=== PATIENT | female | born 1950 | race Caucasian/White ===

== ENCOUNTER 2016-06-20 16:43 | Emergency (ER) | payer MEDICARE ==
--- NOTE | 2016-06-20 17:05 | ERNOTE ---
Upper Extremity HPI - Narrative Date of Service: 06/20/16 - General Extremities Pain Location: hand: right - PT FELL LAST NIGHT ONTO OUTSTRETCHED HAND AND NOW HAS RIGHT HAND PAIN Time Seen by Provider: 06/20/16 16:54 Source: patient Exam Limitations: no limitations - Immun/Allergies/Home Medications Immunizations: IMMUNIZATION HX History of Influenza Vaccine Yes Hx Pneumococcal Vaccination Yes Allergies/Adverse Reactions: Allergies Allergy/AdvReac Type Severity Reaction Status Date / Time codeine Allergy Verified 06/20/16 16:57 Home Medications: HOME MEDICATIONS Acetaminophen [Tylenol] 650 mg PO Q4H PRN 06/20/16 [Last Taken Unknown] Amlodipine Besylate 10 mg PO DAILY 06/20/16 [Last Taken Unknown] Aspirin [Children's Aspirin] 81 mg PO DAILY 06/20/16 [Last Taken Unknown] Chlorthalidone [Hygroton] 25 mg PO DAILY 06/20/16 [Last Taken Unknown] Hydroxyurea [Hydrea] 500 mg PO BID 06/20/16 [Last Taken Unknown] Metoprolol Tartrate [Lopressor] 50 mg PO BID 06/20/16 [Last Taken Unknown] Review of Systems - Review of Systems Constitutional: Present: no symptoms reported EYE: Present: no symptoms reported ENT: Present: no symptoms reported Respiratory: Present: no symptoms reported Cardiology: Present: no symptoms reported Gastrointestinal/Abdominal: Present: no symptoms reported Genitourinary: Present: no symptoms reported Musculoskeletal: Present: See HPI - Patient's Past Medical History Patient History - Medical: No pertinent hx Patient History - Cardiac/Respiratory: Hypertension, Hyperlipidemia Patient History - Cancer: No Hx of Cancer Patient History - Surgical Procedures: Total Hip Replacement, Total Knee Replacement Patient History - Other: None - Social History Living Situations: home Psych History: No pertinent hx Alcohol Use: none Drug Use: none - Immunizations Hx Pneumococcal Vaccination: Yes History of Influenza Vaccine: Yes Physical Exam - Physical Exam General Appearance: Present: wd/wn, alert, no apparent distress Ears, Nose, Throat: Present: normal ENT inspection, hearing grossly normal Neck: Present: normal inspection, nontender Respiratory: Present: no respiratory distress, normal breath sounds, no accessory muscle use, chest nontender, lungs clear Cardiovascular/Chest: Present: regular rate, rhythm, no murmur, normal peripheral pulses Extremity Exam: Present: other - There is swelling and ecchymosis of the dorsum of the right hand. She is able tomove her wrist but has pain. She DOES have pain in the anatomical snuff box ED Progress - Vital Signs Patient's Vital Signs:: I have reviewed the patient's vital signs. Vital Signs: Vital Signs 06/20/16 16:53 Temperature 36.6 C Pulse Rate 69 Respiratory 12 Rate Blood Pressure 143/88 O2 Sat by Pulse 99 Oximetry - X-Ray X-Ray #1 X-Ray: wrist - small distal radius fracture posteriorly on the right side - Progress/Reassessment Chief Complaint: Wrist Injury/Pain Plan - Plan Plan: Case discussed with Mr. Bruce. Will place in thumb SPICA splint and have pt follow up in ortho clinic on Saturday, in 48 hours Departure Clinical Impression: Distal radius fracture Qualifiers: Encounter type: initial encounter Fracture type: closed Fracture morphology: unspecified fracture morphology Laterality: right Qualified Code(s): S52.501A - Unspecified fracture of the lower end of right radius, initial encounter for closed fracture Scaphoid fracture Qualifiers: Encounter type: initial encounter Scaphoid bone location: unspecified portion of scaphoid Fracture type: closed Fracture alignment: nondisplaced Laterality: right Qualified Code(s): S62.001A - Unspecified fracture of navicular [scaphoid ] bone of right wrist, initial encounter for closed fracture - Departure Disposition: Home self-care Condition: Good Instructions: Scaphoid Fracture Additional Instructions: PLEASE GO SEE ORTHO IN OUR ORTHO CLINIC ON Saturday06/22/16 AT 0800. Referrals: Tiffanie Arevalo MD [Primary Care Provider] -
[2016-06-20] MEDS ORDERED: ACETAMINOPHEN 325 MG TABLET PO ONE (17:57)
[2016-06-20] MEDS ORDERED: ACETAMINOPHEN 325 MG TABLET ONE (18:03)
[2016-06-20 18:10] VITALS: BP 139/88
== END 2016-06-20 18:07 | disposition home or self-care (01) ==
LOC: ER 16:43
PROC: 2W3CX1Z Immobilization of Right Lower Arm using Splint (ICD-10-PCS; principal; 2016-06-20)
PROC: 2W3GX1Z Immobilization of Right Thumb using Splint (ICD-10-PCS; 2016-06-20)
DX: S52.501A Unspecified fracture of the lower end of right radius, initial encounter for closed fracture (principal); S62.001A Unspecified fracture of navicular [scaphoid] bone of right wrist, initial encounter for closed fracture; I10 Essential (primary) hypertension; W19.XXXA Unspecified fall, initial encounter